=== PATIENT | female | born 1965 | race Caucasian/White ===

== ENCOUNTER 2022-02-21 09:46 | Inpatient (IN) | payer MEDICAID, OTHER ==
[2022-02-21] MEDS ORDERED: KETOROLAC 15 MG/ML 1 ML VIAL IVP STA (11:11)
[2022-02-21] MEDS ORDERED: ONDANSETRON 4 MG/2 ML VIAL IVP STA (11:24)
[2022-02-21] MEDS ORDERED: PANTOPRAZOLE 40 MG/10 ML VIAL IVP STA (11:24)
[2022-02-21] MEDS ORDERED: MORPHINE SULFATE 2 MG/ML SYRINGE IVP STA (11:24)
--- NOTE | 2022-02-21 11:30 | ED ---
Abdominal Pain HPI - General Chief Complaint: Abdominal Pain Stated Complaint: abd pain Time Seen by Provider: 02/21/22 11:05 Source: patient, RN notes reviewed Mode of arrival: ambulatory Limitations: no limitations - History of Present Illness Initial Comments: This is a 56-year-old female who presents to the emergency department for abdominal pain. States that she has a long-standing history of diverticulitis that has never been addressed. States that for approximately 5 days, she has had abdominal pain, with constipation occurring beforehand. She has since had episodes of diarrhea, which she is trying to treat with Imodium. The pain has since continued with no relief. Reports associated bloating and nausea. She did vomit a few days ago, but has since not had any episodes of vomiting. States that the abdominal pain is in her lower abdomen with radiation into the back and seems to be getting worse. Denies any fevers, chills, sore throat, cough, dyspnea, chest pain, palpitations, or headaches. MD Complaint: abdominal pain Onset/Timin -: days(s) Location: LLQ, RLQ, suprapubic Radiation: back Associated Symptoms: nausea, vomiting, diarrhea, constipation - Related Data Patient : No Home Medications Medication Instructions Recorded Confirmed No Known Home Medications 02/21/22 02/21/22 Allergies Allergy/AdvReac Type Severity Reaction Status Date / Time No Known Allergies Allergy Verified 02/21/22 13:14 Review of Systems ROS Statement: Those systems with pertinent positive or pertinent negative responses have been documented in the HPI. ROS Other: All systems not noted in ROS Statement are negative. Past Medical History Past Medical History: No Reported History Additional Past Medical History / Comment(s): hx diverticulitis, colonoscopy History of Any Multi-Drug Resistant Organisms: None Reported Past Surgical History: No Surgical Hx Reported Additional Past Surgical History / Comment(s): oral surgery, lt breast biopsy - Neg for CA Past Anesthesia/Blood Transfusion Reactions: No Reported Reaction Past Psychological History: No Psychological Hx Reported Smoking Status: Former smoker Past Alcohol Use History: Occasional Past Drug Use History: None Reported - Past Family History Father Family Medical History: Cancer Son(s) Family Medical History: Cancer Additional Family Medical History / Comment(s): Leukemia General Exam Limitations: no limitations General appearance: alert, in no apparent distress Head exam: Present: atraumatic, normocephalic, normal inspection Respiratory exam: Present: normal lung sounds bilaterally. Absent: respiratory distress, wheezes, rales, rhonchi, stridor Cardiovascular Exam: Present: regular rate, normal rhythm, normal heart sounds. Absent: systolic murmur, diastolic murmur, rubs, gallop, clicks GI/Abdominal exam: Present: soft, tenderness (Lower abdomen), normal bowel sounds. Absent: distended, guarding, rebound, rigid Neurological exam: Present: alert, oriented X3, CN II-XII intact Psychiatric exam: Present: normal affect, normal mood Skin exam: Present: warm, dry, intact, normal color. Absent: rash Course Vital Signs 02/21/22 09:49 Temperature 97.9 F Pulse Rate 87 Respiratory 20 Rate Blood Pressure 124/82 O2 Sat by Pulse 99 Oximetry Medical Decision Making - Medical Decision Making This is a 56-year-old female who presents to the emergency department for abdominal pain, nausea, and vomiting. Lab work was nonactionable. She was given Toradol, Zofran, Protonix, and morphine, which she states improved her symptoms. Urinalysis consistent with contamination more so than infection. She did test positive for COVID-19. Computed tomography scan of the abdomen and pelvis obtained, revealing acute sigmoid diverticulitis with abscess formation. Patient started on IV fluids and Zosyn. She'll be admitted to medicine with surgical consult. She will also be kept NPO in the event any intervention is warranted. This case was discussed in detail with the attending ED physician. Presentation, findings, and treatment plan discussed in detail as well. - Lab Data Result diagrams: 02/21/22 11:41 02/21/22 11:41 Lab Results 02/21/22 02/21/22 02/21/22 Range/Units 11:41 11:41 11:41 WBC 10.2 (3.8-10.6) k/uL RBC 3.75 L (3.80-5.40) m/uL Hgb 12.4 (11.4-16.0) gm/dL Hct 36.9 (34.0-46.0) % MCV 98.3 (80.0-100.0) fL MCH 33.2 (25.0-35.0) pg MCHC 33.7 (31.0-37.0) g/dL RDW 12.3 (11.5-15.5) % Plt Count 634 H (150-450) k/uL MPV 7.2 Neutrophils % 79 % Lymphocytes % 14 % Monocytes % 4 % Eosinophils % 1 % Basophils % 0 % Neutrophils # 8.1 H (1.3-7.7) k/uL Lymphocytes # 1.4 (1.0-4.8) k/uL Monocytes # 0.5 (0-1.0) k/uL Eosinophils # 0.1 (0-0.7) k/uL Basophils # 0.0 (0-0.2) k/uL Sodium 134 L (137-145) mmol/L Potassium 3.8 (3.5-5.1) mmol/L Chloride 95 L (98-107) mmol/L Carbon Dioxide 28 (22-30) mmol/L Anion Gap 11 mmol/L BUN 9 (7-17) mg/dL Creatinine 0.36 L (0.52-1.04) mg/dL Est GFR (CKD-EPI)AfAm >90 (>60 ml/min/1.73 sqM) Est GFR (CKD-EPI)NonAf >90 (>60 ml/min/1.73 sqM) Glucose 107 H (74-99) mg/dL Calcium 8.8 (8.4-10.2) mg/dL Total Bilirubin 0.5 (0.2-1.3) mg/dL AST 22 (14-36) U/L ALT 16 (4-34) U/L Alkaline Phosphatase 157 H (38-126) U/L Troponin I (0.000-0.034) ng/mL Total Protein 7.0 (6.3-8.2) g/dL Albumin 3.8 (3.5-5.0) g/dL Amylase 35 (30-110) U/L Lipase 30 (23-300) U/L Urine Color Dark Yellow Urine Appearance Cloudy H (Clear) Urine pH 5.5 (5.0-8.0) Ur Specific [place] 1.026 (1.001-1.035) Urine Protein 1+ H (Negative) Urine Glucose (UA) Negative (Negative) Urine Ketones Negative (Negative) Urine Blood Negative (Negative) Urine Nitrite Negative (Negative) Urine Bilirubin 1+ H (Negative) Urine Urobilinogen 2.0 (<2.0) mg/dL Ur Leukocyte Esterase Moderate H (Negative) Urine RBC 3 (0-5) /hpf Urine WBC 5 (0-5) /hpf Ur Squamous Epith Cells 14 H (0-4) /hpf Urine Mucus Many H (None) /hpf Coronavirus (PCR) (Not Detectd) 02/21/22 02/21/22 Range/Units 11:41 11:41 WBC (3.8-10.6) k/uL RBC (3.80-5.40) m/uL Hgb (11.4-16.0) gm/dL Hct (34.0-46.0) % MCV (80.0-100.0) fL MCH (25.0-35.0) pg MCHC (31.0-37.0) g/dL RDW (11.5-15.5) % Plt Count (150-450) k/uL MPV Neutrophils % % Lymphocytes % % Monocytes % % Eosinophils % % Basophils % % Neutrophils # (1.3-7.7) k/uL Lymphocytes # (1.0-4.8) k/uL Monocytes # (0-1.0) k/uL Eosinophils # (0-0.7) k/uL Basophils # (0-0.2) k/uL Sodium (137-145) mmol/L Potassium (3.5-5.1) mmol/L Chloride (98-107) mmol/L Carbon Dioxide (22-30) mmol/L Anion Gap mmol/L BUN (7-17) mg/dL Creatinine (0.52-1.04) mg/dL Est GFR (CKD-EPI)AfAm (>60 ml/min/1.73 sqM) Est GFR (CKD-EPI)NonAf (>60 ml/min/1.73 sqM) Glucose (74-99) mg/dL Calcium (8.4-10.2) mg/dL Total Bilirubin (0.2-1.3) mg/dL AST (14-36) U/L ALT (4-34) U/L Alkaline Phosphatase (38-126) U/L Troponin I <0.012 (0.000-0.034) ng/mL Total Protein (6.3-8.2) g/dL Albumin (3.5-5.0) g/dL Amylase (30-110) U/L Lipase (23-300) U/L Urine Color Urine Appearance (Clear) Urine pH (5.0-8.0) Ur Specific [place] (1.001-1.035) Urine Protein (Negative) Urine Glucose (UA) (Negative) Urine Ketones (Negative) Urine Blood (Negative) Urine Nitrite (Negative) Urine Bilirubin (Negative) Urine Urobilinogen (<2.0) mg/dL Ur Leukocyte Esterase (Negative) Urine RBC (0-5) /hpf Urine WBC (0-5) /hpf Ur Squamous Epith Cells (0-4) /hpf Urine Mucus (None) /hpf Coronavirus (PCR) Detected A (Not Detectd) - Radiology Data Radiology results: report reviewed, image reviewed Disposition Clinical Impression: Diverticulitis of intestine with abscess Disposition: [facility] Referrals: None,Stated [Primary Care Provider] - 1-2 days
[2022-02-21 12:31] LABS: Basophils % (A) 0 %; Eosinophils # (A) 0.1 k/uL (0-0.7); Eosinophils % (A) 1 %; HCT 36.9 % (34.0-46.0); HGB 12.4 gm/dL (11.4-16.0); Lymphocytes # (A) 1.4 k/uL (1.0-4.8); Lymphocytes % (A) 14 %; MCH 33.2 pg (25.0-35.0); MCHC 33.7 g/dL (31.0-37.0); MCV 98.3 fL (80.0-100.0); Mean Platelet Volume 7.2; Monocytes # (A) 0.5 k/uL (0-1.0); Monocytes % (A) 4 %; Neutrophils # (A) 8.1 k/uL (1.3-7.7); Neutrophils % (A) 79 %; Platelet Count 634 k/uL (150-450); RBC 3.75 m/uL (3.80-5.40); RDW 12.3 % (11.5-15.5); WBC 10.2 k/uL (3.8-10.6)
[2022-02-21 12:47] LABS: ALT 16 U/L (4-34); AST 22 U/L (14-36); African American GFR (CKD) >90 (>60 ml/min/1.73 sqM); Albumin 3.8 g/dL (3.5-5.0); Alkaline Phosphatase 157 U/L (38-126); Amylase 35 U/L (30-110); Anion Gap 11 mmol/L; Blood Urea Nitrogen 9 mg/dL (7-17); Calcium 8.8 mg/dL (8.4-10.2); Carbon Dioxide 28 mmol/L (22-30); Chloride 95 mmol/L (98-107); Glucose 107 mg/dL (74-99); Lipase 30 U/L (23-300); Non-African American GFR(CKD) >90 (>60 ml/min/1.73 sqM); Potassium 3.8 mmol/L (3.5-5.1); Sodium 134 mmol/L (137-145); Total Bilirubin 0.5 mg/dL (0.2-1.3)
[2022-02-21 12:48] LABS: Appearance,Urine Cloudy (Clear); Bilirubin,Urine 1+ (Negative); Blood,Urine Negative (Negative); Color,Urine Dark Yellow; Glucose,Urine (UA) Negative (Negative); Ketones,Urine Negative (Negative); Leukocyte Esterase,Urine Moderate (Negative); Mucus,Urine Many /hpf; Nitrite,Urine Negative (Negative); PH, Urine 5.5 (5.0-8.0); Protein,Urine 1+ (Negative); RBC,Urine 3 /hpf (0-5); Specific Gravity,Urine 1.026 (1.001-1.035); Squamous Epithelial Cell,Urine 14 /hpf (0-4); WBC,Urine 5 /hpf (0-5)
--- NOTE | 2022-02-21 13:47 | CT ---
EXAMINATION TYPE: CT abdomen pelvis w con DATE OF EXAM: 02/21/2022 COMPARISON: 03/23/15 HISTORY: Abdominal pain CT DLP: 514.6 mGycm CONTRAST: CT scan of the abdomen and pelvis is performed without Oral Contrast and with IV Contrast, patient in jected with 100 mL of Isovue 300. FINDINGS: LUNG BASES-: No visible nodule. No infiltrate. LIVER/GB: No calcified gallstones. No space occupying hepatic lesion. Biliary tree is of normal ca liber. PANCREAS: No inflammation. No distinct mass. SPLEEN: No splenic enlargement. No lesion seen. ADRENALS: No nodule. No thickening. KIDNEYS/BLADDER: No hydronephrosis. No nephrolithiasis. No distinct renal mass. Urinary bladder g rossly unremarkable. BOWEL: There are a few tiny foci of free air seen within the upper abdomen. There is evidence of sigm oid diverticulitis with abscess noted as seen best on axial image 61 and coronal image 68 measuring 3 .3 x 2.7 cm. The abscess resides adjacent to the right portion of the uterus. Sigmoid wall thickening with numerous diverticula seen. Inflammatory change extends into the right adnexa. Small bowel is of normal caliber. Nonvisualization of the appendix. GENITAL ORGANS: No left adnexal mass. Inflammatory change extends into the right adnexal region. LYMPH NODES: No greater than 1cm abdominal or pelvic lymph nodes are appreciated. AORTA: No significant abnormality. OSSEOUS STRUCTURES: No significant abnormality is seen. OTHER: No significant additional abnormality is seen. IMPRESSION: 1. Findings compatible with the acute sigmoid diverticulitis with abscess formation. Abscess is diffi cult to drain given size and location. As noted above there are a few tiny foci of free air within th e upper abdomen. Inflammatory change extends into the right adnexa.
[2022-02-21] MEDS ORDERED: SODIUM CHLORIDE 0.9% 1,000 ML IV STA (13:51)
[2022-02-21] MEDS ORDERED: KETOROLAC 15 MG/ML 1 ML VIAL IVP PRN (15:00)
[2022-02-21] MEDS ORDERED: ONDANSETRON 4 MG/2 ML VIAL IVP PRN (15:00)
[2022-02-21] MEDS ORDERED: HYDROmorphone 1 MG/ML 1 ML SYRINGE IVP PRN (15:00)
[2022-02-21] MEDS ORDERED: NALOXONE 0.4 MG/ML 1 ML VIAL IV PRN (15:00)
[2022-02-21] MEDS ORDERED: ACETAMINOPHEN TAB 325 MG TAB PO PRN (15:00)
--- NOTE | 2022-02-21 15:27 | P.HPIM ---
History of Present Illness H&P Date: 02/21/22 History of Presenting Illness: Patient is a very pleasant 56-year-old female with a past medical history of diverticulosis and nicotine dependence. Patient presented to the emergency department with a chief complaint of abdominal pain. Patient reports that she has chronic diarrhea which slightly worse in 2 weeks ago when she was diagnosed with Covid. Patient states that she was treating this with Imodium which resulted in constipation, abdominal pain, and bloating. Patient reports she then took a "Brown Bomber" consisting of miralax and prune juice and resumed her baseline diarrhea but states that she continues to have abdominal pain, nausea, and bloating. Patient reports severe pain left lower quadrant radiating into her back, states pain is worse in any previous pain she has had with diverticulitis. She denies having fever, chills, diaphoresis, chest pain, palpitations, cough, congestion, shortness of breath, exertional dyspnea, vomiti ng, hematemesis, melena, hematochezia, or experiencing any difficulties in or changes in her urinary function. Reports that her 11-year-old granddaughter was recently diagnosed with a parasitic infection. Patient underwent full evaluation in the emergency department. CBC unremarkable with the exception of thrombocytosis with platelet count of 634. BMP revealing mild hyponatremia with sodium of 134, hypochloremia with chloride of 95, and elevated alkaline phosphatase of 157. Troponin negative at less than 0.012. Urinalysis contaminated specimen, but showing no signs of infection. Covid PCR incidentally positive, however patient reports that she works at [employer] and was diagnosed with Covid infection [address] abdomen and pelvis with contrast revealing acute sigmoid diverticulitis with abscess formation. Patient started on IV antibiotics with Zosyn and admitted under our services with consultation to general surgery. Review of systems: Pertinent positives and negatives as discussed in HPI, a complete review of syst ems was performed and all other systems are negative. Physical exam: Vital signs reviewed and stable. General: Nontoxic, no distress and appears stated age. Derm: Skin warm and dry, normal coloration for ethnicity. Head: Atraumatic, normocephalic and symmetric. Eyes: EOMs intact, no lid lag, and anicteric sclera Mouth: no lip lesions, mucus membranes moist Cardiovascular: regular rate and rhythm with normal S1S2, no murmur, positive posterior tibial pulses bilaterally, and cap refill < 2 seconds. Lungs: Respirations even, regular, and unlabored on room air. Lungs diminished bilaterally, no rhonchi, no rales, no wheezing, and no accessory muscle usage. Abdominal: soft, left lower quadrant tenderness upon palpation, no guarding, no appreciable organomegaly Ext: ROM intact. No gross muscle atrophy, no edema, no contractures Neuro: Speech clear, face symmetrical and CN II-XII grossly intact with no noted focal neuro deficits Psych: Alert and oriented to person, place, time, and situation. Appropriate and pleasant affect. Assessment and Plan of Care: Acute sigmoid diverticulitis with abscess formation Covid 19 positive test, reports postive test 2 weeks ago. Thrombocytosis, likely reactive secondary to above -CT abdomen and pelvis with contrast revealing acute sigmoid diverticulitis with abscess formation -NPO -Gen. surgery consulted -Symptomatic care and pain management -IV fluid hydration -IV antibiotics with Zosyn -DVT prophylaxis with Lovenox. -Strict Droplet plus Contact precautions Nicotine dependence -Recommend smoking cessation. -Nicotine patch The patient is admitted with an anticipated greater than 2 midnight stay for evaluation of acute sigmoid diverticulitis with abscess formation CODE STATUS: Full code DVT prophylaxis: Lovenox Discussed with: Patient, patient's family members at bedside, and RN Anticipated discharge date: Clinical course to determine Anticipated discharge place: Home A total of 45 minutes was spent on the care of this complex patient more than 50% of the time was spent in counseling and care coordination. I reviewed the documentation as provided by the KATIE above, who is the original author of this note. I agree with the documented assessment and plan, with the following changes: none Past Medical History Past Medical History: No Reported History Additional Past Medical History / Comment(s): hx diverticulitis, colonoscopy History of Any Multi-Drug Resistant Organisms: None Reported Past Surgical History: No Surgical Hx Reported Additional Past Surgical History / Comment(s): oral surgery, lt breast biopsy - Neg for CA Past Anesthesia/Blood Transfusion Reactions: No Reported Reaction Past Psychological History: No Psychological Hx Reported Smoking Status: Former smoker Past Alcohol Use History: Occasional Past Drug Use History: None Reported - Past Family History Father Family Medical History: Cancer Son(s) Family Medical History: Cancer Additional Family Medical History / Comment(s): Leukemia Medications and Allergies Home Medications Medication Instructions Recorded Confirmed Type No Known Home Medications 02/21/22 02/21/22 History Allergies Allergy/AdvReac Type Severity Reaction Status Date / Time No Known Allergies Allergy Verified 02/21/22 13:14 Physical Exam Osteopathic Statement: *. No significant issues noted on an osteopathic structural exam other than those noted in the History and Physical/Consult. Vitals: Vital Signs Temp Pulse Resp BP Pulse Ox 02/21/22 09:49 97.9 F 87 20 124/82 99 Intake and Output 02/21/22 02/21/22 02/21/22 06:59 14:59 22:59 Other: Weight 50.802 kg Results CBC & Chem 7: 02/21/22 11:41 02/21/22 11:41 Labs: Abnormal Lab Results - Last 24 Hours (Table) 02/21/22 02/21/22 02/21/22 Range/Units 11:41 11:41 11:41 RBC 3.75 L (3.80-5.40) m/uL Plt Count 634 H (150-450) k/uL Neutrophils # 8.1 H (1.3-7.7) k/uL Sodium 134 L (137-145) mmol/L Chloride 95 L (98-107) mmol/L Creatinine 0.36 L (0.52-1.04) mg/dL Glucose 107 H (74-99) mg/dL Alkaline Phosphatase 157 H (38-126) U/L Urine Appearance Cloudy H (Clear) Urine Protein 1+ H (Negative) Urine Bilirubin 1+ H (Negative) Ur Leukocyte Esterase Moderate H (Negative) Ur Squamous Epith Cells 14 H (0-4) /hpf Urine Mucus Many H (None) /hpf Coronavirus (PCR) (Not Detectd) 02/21/22 Range/Units 11:41 RBC (3.80-5.40) m/uL Plt Count (150-450) k/uL Neutrophils # (1.3-7.7) k/uL Sodium (137-145) mmol/L Chloride (98-107) mmol/L Creatinine (0.52-1.04) mg/dL Glucose (74-99) mg/dL Alkaline Phosphatase (38-126) U/L Urine Appearance (Clear) Urine Protein (Negative) Urine Bilirubin (Negative) Ur Leukocyte Esterase (Negative) Ur Squamous Epith Cells (0-4) /hpf Urine Mucus (None) /hpf Coronavirus (PCR) Detected A (Not Detectd)
[2022-02-21] MEDS: HYDROmorphone 0.5 MG/0.5 ML SYRINGE IVP PRN (15:37)
[2022-02-21] MEDS: PIPERACILLIN-TAZOBACTAM 3.375 GM in SODIUM CHLORIDE 0.9% 100 ML IVPB SCH (15:38)
[2022-02-21] MEDS: ENOXAPARIN 40 MG/0.4 ML SYRINGE SQ SCH (15:49)
[2022-02-21] MEDS: SODIUM CHLORIDE 0.9% 1,000 ML IV SCH (15:49)
[2022-02-21] MEDS: NICOTINE 14MG/24HR PATCH TRANSDERM SCH (17:30)
[2022-02-22] MEDS: HYDROmorphone 0.5 MG/0.5 ML SYRINGE IVP PRN ×2 (02:31→20:12)
[2022-02-22] MEDS: SODIUM CHLORIDE 0.9% 1,000 ML IV SCH ×4 (02:38→23:47)
[2022-02-22] MEDS: PIPERACILLIN-TAZOBACTAM 3.375 GM in SODIUM CHLORIDE 0.9% 100 ML IVPB SCH ×4 (02:38→23:43)
[2022-02-22] MEDS: PANTOPRAZOLE 40 MG/10 ML VIAL IV SCH (08:41)
[2022-02-22] MEDS: ENOXAPARIN 40 MG/0.4 ML SYRINGE SQ SCH (08:41)
[2022-02-22] MEDS: NICOTINE 14MG/24HR PATCH TRANSDERM SCH ×2 (08:41→09:00)
[2022-02-22 11:16] LABS: HCT 29.6 % (37.2-46.3); HGB 9.3 g/dL (12.0-15.0); MCH 32.4 pg (27.0-32.0); MCHC 31.4 g/dL (32.0-37.0); MCV 103.1 fL (80.0-97.0); Mean Platelet Volume 9.1 fL (9.5-12.2); NRBC Per 100 WBC 0 /100 WBCS (0.0-0.0); Platelet Count 499 X 10*3/uL (140-440); RBC 2.87 X 10*6/uL (4.10-5.20); RDW 12.2 % (11.5-14.5); WBC 6.63 X 10*3/uL (4.50-10.00)
[2022-02-22 11:30] LABS: ALT 9 U/L (8-44); AST 14 U/L (13-35); African American GFR (CKD) 147.3 (60.0-200.0); Albumin/Globulin Ratio 1.11 (1.60-3.17); Alkaline Phosphatase 106 U/L (41-126); BUN/Creat Ratio 28.33 Ratio (12.00-20.00); Blood Urea Nitrogen 8.5 mg/dL (9.0-27.0); Calcium 8.3 mg/dL (8.7-10.3); Carbon Dioxide 23.6 mmol/L (20.0-27.5); Chloride 105 mmol/L (96-109); Globulin 2.7 g/dL (1.6-3.3); Glucose 76 mg/dL (70-110); Magnesium 2.1 mg/dL (1.5-2.4); Non-African American GFR(CKD) 127.1 (60.0-200.0); Potassium 3.6 mmol/L (3.5-5.5); Sodium 139 mmol/L (135-145); Total Bilirubin <0.15 mg/dL (0.30-1.20); Total Protein 5.7 g/dL (6.2-8.2)
--- NOTE | 2022-02-22 14:43 | P.GSCN ---
History of Present Illness Consult date: 02/22/22 History of present illness: CHIEF COMPLAINT: Abdominal pain HISTORY OF PRESENT ILLNESS: This is a 56-year-old female presented to the hospital with complaints of abdominal pain mostly on the left lower abdomen and lower mid abdomen. She reports that symptoms happened over the last 3 days. Pain was sharp and stabbing. She reports the pain was of 15 out of 10. She did have episode of vomiting. She reports that the pain was worse after eating. Patient does have a history of diverticulosis. Her last colonoscopy was about 3 years ago. She reports that she had one official antibiotic treatment of diverticulitis. But she feels that she has consistent flareups likely of diverticulitis that have undergone untreated for years. All she denies any blood in her stools. She has been doing with diarrhea in which she takes Imodium and then has constipation. Computed tomography scan of abdomen and pelvis had shown sigmoid diverticulitis with abscess and tiny microperforation. Surgical service has been consulted in regards to diverticulitis abscess. Patient is on antibiotics. She denies any fever chills or sweats. Patient does report improvement of her pain today. Patient seen and examined with Dr. castillo PAST MEDICAL HISTORY: See list. PAST SURGICAL HISTORY: See list. MEDICATIONS: See list. ALLERGIES: See list. SOCIAL HISTORY: No illicit drug use. REVIEW OF SYSTEMS: CONSTITUTIONAL: Denies fever or chills. HEENT: Denies blurred vision, vision changes, or eye pain. Denies hemoptysis CARDIOVASCULAR: Denies chest pain or pressure. RESPIRATORY: No shortness of breath. GASTROINTESTINAL: See HPI for pertinent findings HEMATOLOGIC: Denies bleeding disorders. GENITOURINARY: Denies any blood in urine or increased urinary frequency. SKIN: Denies pruitis. Denies rash. PHYSICAL EXAM: VITAL SIGNS: Reviewed GENERAL: Well-developed in no acute distress. HEENT: No sclera icterus. Extraocular movements grossly intact. Moist buccal mucosa. Head is atraumatic, normocephalic. No nasal drainage. ABDOMEN: Soft. Nondistended. Minimal discomfort with palpation in the lower abdomen along the left lower quadrant and pelvic area. NEUROLOGIC: Alert and oriented. Cranial nerves II through XII grossly intact. LABORATORY DATA: WBC is 6.63 hemoglobin 9.3 platelets 499 Sodium is 139 potassium 3.6 creatinine 0.3 COVID-19 detected. Patient reports she was tested positive for cold and 2 weeks ago IMAGING: Computed tomography scan abdomen and pelvis acute sigmoid diverticulitis with abscess formation. Abscess is difficult to drain given size and location. A few tiny foci of free air within the upper abdomen. Inflammatory change extends into the right adnexa. Abscess measuring 3.3 x 2.7 cm. ASSESSMENT: 1. Acute sigmoid diverticulitis with abscess and microperforation PLAN: -Advance diet to full liquids -Continue to monitor -Continue antibiotics -Continue IV fluids -Encourage patient to ambulate -No surgical intervention planned at this time -Recommend colonoscopy outpatient in 6-8 weeks Physician Electric Motor [employer] note has been reviewed by physician. Signing provider agrees with the documented findings, assessment, and plan of care. Past Medical History Past Medical History: No Reported History Additional Past Medical History / Comment(s): hx diverticulitis, colonoscopy History of Any Multi-Drug Resistant Organisms: None Reported Past Surgical History: No Surgical Hx Reported Additional Past Surgical History / Comment(s): oral surgery, lt breast biopsy - Neg for CA Past Anesthesia/Blood Transfusion Reactions: No Reported Reaction Past Psychological History: No Psychological Hx Reported Smoking Status: Former smoker Past Alcohol Use History: Occasional Additional Past Alcohol Use History / Comment(s): smokes 1 PPD for past 20 yrs Past Drug Use History: None Reported - Past Family History Father Family Medical History: Cancer Son(s) Family Medical History: Cancer Additional Family Medical History / Comment(s): Leukemia Medications and Allergies Home Medications Medication Instructions Recorded Confirmed Type No Known Home Medications 02/21/22 02/21/22 History Allergies Allergy/AdvReac Type Severity Reaction Status Date / Time No Known Allergies Allergy Verified 02/21/22 13:14 Surgical - Exam Vital Signs Temp Pulse Resp BP Pulse Ox 97.9 F 87 20 124/82 99 02/21/22 09:49 02/21/22 09:49 02/21/22 09:49 02/21/22 09:49 02/21/22 09:49 Results - Labs 02/22/22 07:33 02/22/22 07:33 Abnormal Lab Results - Last 24 Hours (Table) 02/21/22 02/21/22 02/21/22 Range/Units 11:41 11:41 11:41 RBC 3.75 L (3.80-5.40) m/uL Plt Count 634 H (150-450) k/uL Neutrophils # 8.1 H (1.3-7.7) k/uL Sodium 134 L (137-145) mmol/L Chloride 95 L (98-107) mmol/L Creatinine 0.36 L (0.52-1.04) mg/dL Glucose 107 H (74-99) mg/dL Alkaline Phosphatase 157 H (38-126) U/L Urine Appearance Cloudy H (Clear) Urine Protein 1+ H (Negative) Urine Bilirubin 1+ H (Negative) Ur Leukocyte Esterase Moderate H (Negative) Ur Squamous Epith Cells 14 H (0-4) /hpf Urine Mucus Many H (None) /hpf Coronavirus (PCR) (Not Detectd) 02/21/22 Range/Units 11:41 RBC (3.80-5.40) m/uL Plt Count (150-450) k/uL Neutrophils # (1.3-7.7) k/uL Sodium (137-145) mmol/L Chloride (98-107) mmol/L Creatinine (0.52-1.04) mg/dL Glucose (74-99) mg/dL Alkaline Phosphatase (38-126) U/L Urine Appearance (Clear) Urine Protein (Negative) Urine Bilirubin (Negative) Ur Leukocyte Esterase (Negative) Ur Squamous Epith Cells (0-4) /hpf Urine Mucus (None) /hpf Coronavirus (PCR) Detected A (Not Detectd) Diabetes panel 02/21/22 Range/Units 11:41 Sodium 134 L (137-145) mmol/L Potassium 3.8 (3.5-5.1) mmol/L Chloride 95 L (98-107) mmol/L Carbon Dioxide 28 (22-30) mmol/L BUN 9 (7-17) mg/dL Creatinine 0.36 L (0.52-1.04) mg/dL Glucose 107 H (74-99) mg/dL Calcium 8.8 (8.4-10.2) mg/dL AST 22 (14-36) U/L ALT 16 (4-34) U/L Alkaline Phosphatase 157 H (38-126) U/L Total Protein 7.0 (6.3-8.2) g/dL Albumin 3.8 (3.5-5.0) g/dL Calcium panel 02/21/22 Range/Units 11:41 Calcium 8.8 (8.4-10.2) mg/dL Albumin 3.8 (3.5-5.0) g/dL Pituitary panel 02/21/22 Range/Units 11:41 Sodium 134 L (137-145) mmol/L Potassium 3.8 (3.5-5.1) mmol/L Chloride 95 L (98-107) mmol/L Carbon Dioxide 28 (22-30) mmol/L BUN 9 (7-17) mg/dL Creatinine 0.36 L (0.52-1.04) mg/dL Glucose 107 H (74-99) mg/dL Calcium 8.8 (8.4-10.2) mg/dL Adrenal panel 02/21/22 Range/Units 11:41 Sodium 134 L (137-145) mmol/L Potassium 3.8 (3.5-5.1) mmol/L Chloride 95 L (98-107) mmol/L Carbon Dioxide 28 (22-30) mmol/L BUN 9 (7-17) mg/dL Creatinine 0.36 L (0.52-1.04) mg/dL Glucose 107 H (74-99) mg/dL Calcium 8.8 (8.4-10.2) mg/dL Total Bilirubin 0.5 (0.2-1.3) mg/dL AST 22 (14-36) U/L ALT 16 (4-34) U/L Alkaline Phosphatase 157 H (38-126) U/L Total Protein 7.0 (6.3-8.2) g/dL Albumin 3.8 (3.5-5.0) g/dL
--- NOTE | 2022-02-22 16:48 | P.PN ---
Subjective Progress Note Date: 02/22/22 Hospital course: Patient is a very pleasant 56-year-old female with a past medical history of diverticulosis and nicotine dependence. Patient presented to the emergency department with a chief complaint of abdominal pain. Patient reports that she has chronic diarrhea which slightly worse in 2 weeks ago when she was diagnosed with Covid. Patient states that she was treating this with Imodium which resulted in constipation, abdominal pain, and bloating. Patient reports she then took a "Brown Bomber" consisting of miralax and prune juice and resumed her baseline diarrhea but states that she continues to have abdominal pain, nausea, and bloating. Patient reports severe pain left lower quadrant radiating into her back, states pain is worse in any previous pain she has had with diverticulitis. She denies having fever, chills, diaphoresis, chest pain, palpitations, cough, congestion, shortness of breath, exertional dyspnea, vomiting, hematemesis, melena, hematochezia, or experiencing any difficulties in or changes in her urinary function. Reports that her 11-year-old granddaughter was recently diagnosed with a parasitic infection. Patient underwent full evaluation in the emergency department. CBC unremarkable with the exception of thrombocytosis with platelet count of 634. BMP revealing mild hyponatremia with sodium of 134, hypochloremia with chloride of 95, and elevated alkaline phosphatase of 157. Troponin negative at less than 0.012. Urinalysis contamin ated specimen, but showing no signs of infection. Covid PCR incidentally positive, however patient reports that she works at [employer] and was diagnosed with Covid infection [address] abdomen and pelvis with contrast revealing acute sigmoid diverticulitis with abscess formation. Patient started on IV antibiotics with Zosyn and admitted under our services with consultation to general surgery. Physical exam: Patient seen and fully evaluated at bedside. She reports improvement in previously reported pain but continues to have mild pain to bilateral lower quadrants this morning improved after administration of IV pain medication. Patient denies any episodes of nausea or vomiting. Patient denies any episodes of bleeding or dark colored stools. Hemoglobin dropped from 12.4 down to 9.3, possibly secondary to dilution as patient received moderate amount of IV fluid hydration. Secondary to denying any noted bleeding, we will continue to monitor closely with repeat a.m. labs. Vital signs reviewed and stable. General: Nontoxic, no distress and appears stated age. Derm: Skin warm and dry, normal coloration for ethnicity. Head: Atraumatic, normocephalic and symmetric. Eyes: EOMs intact, no lid lag, and anicteric sclera Mouth: no lip lesions, mucus membranes moist Cardiovascular: regular rate and rhythm with normal S1S2, no murmur, positive posterior tibial pulses bilaterally, and cap refill < 2 seconds. Lungs: Respirations even, regular, and unlabored on room air. Lungs diminished bilaterally, no rhonchi, no rales, no wheezing, and no accessory muscle usage. Abdominal: soft, left lower quadrant tenderness upon palpation, no guarding, no appreciable organomegaly Ext: ROM intact. No gross muscle atrophy, no edema, no contractures Neuro: Speech clear, face symmetrical and CN II-XII grossly intact with no noted focal neuro deficits Psych: Alert and oriented to person, place, time, and situation. Appropriate and pleasant affect. Assessment and Plan of Care: Acute sigmoid diverticulitis with abscess formation and microperforation Covid 19 positive test, reports postive test 2 weeks ago. -CT abdomen and pelvis with contrast revealing acute sigmoid diverticulitis with abscess formation -NPO, pending further recommendations from general surgery -Gen. surgery consulted -Symptomatic care and pain management -IV fluid hydration -IV antibiotics with Zosyn -DVT prophylaxis with Lovenox. Acute anemia Thrombocytosis -Patient denies any episodes of bleeding. -We will continue to monitor closely with repeat a.m. labs. Nicotine dependence -Recommend smoking cessation. -Nicotine patch CODE STATUS: Full code DVT prophylaxis: Lovenox Discussed with: Patient, patient's daughter, and RN Anticipated discharge date: Clinical course to determine Anticipated discharge place: Home A total of 35 minutes was spent on the care of this complex patient more than 50% of the time was spent in counseling and care coordination. I reviewed the documentation as provided by the KATIE above, who is the original author of this note. I agree with the documented assessment and plan, with the following changes: none Objective - Vital Signs Vital signs: Vital Signs Temp 98 F 02/22/22 01:49 Pulse 82 02/22/22 01:49 Resp 17 02/22/22 01:49 BP 102/65 02/22/22 01:49 Pulse Ox 95 02/22/22 01:49 FiO2 Intake & Output 1002/22/22 02/22/22 18:59 06:59 18:59 Weight 50.802 kg 50.802 kg Other: Voiding Method Toilet # Voids 2 - Labs CBC & Chem 7: 02/22/22 07:33 02/22/22 07:33 Labs: Abnormal Lab Results - Last 24 Hours (Table) 02/21/22 02/21/22 02/21/22 Range/Units 11:41 11:41 11:41 RBC 3.75 L (3.80-5.40) m/uL Hgb (12.0-15.0) g/dL Hct (37.2-46.3) % MCV (80.0-97.0) fL MCH (27.0-32.0) pg MCHC (32.0-37.0) g/dL Plt Count 634 H (150-450) k/uL MPV (9.5-12.2) fL Neutrophils # 8.1 H (1.3-7.7) k/uL Sodium 134 L (137-145) mmol/L Chloride 95 L (98-107) mmol/L Creatinine 0.36 L (0.52-1.04) mg/dL Glucose 107 H (74-99) mg/dL Alkaline Phosphatase 157 H (38-126) U/L Urine Appearance Cloudy H (Clear) Urine Protein 1+ H (Negative) Urine Bilirubin 1+ H (Negative) Ur Leukocyte Esterase Moderate H (Negative) Ur Squamous Epith Cells 14 H (0-4) /hpf Urine Mucus Many H (None) /hpf Coronavirus (PCR) (Not Detectd) 02/21/22 02/22/22 Range/Units 11:41 07:33 RBC 2.87 L (3.80-5.40) m/uL Hgb 9.3 L (12.0-15.0) g/dL Hct 29.6 L (37.2-46.3) % MCV 103.1 H (80.0-97.0) fL MCH 32.4 H (27.0-32.0) pg MCHC 31.4 L (32.0-37.0) g/dL Plt Count 499 H (150-450) k/uL MPV 9.1 L (9.5-12.2) fL Neutrophils # (1.3-7.7) k/uL Sodium (137-145) mmol/L Chloride (98-107) mmol/L Creatinine (0.52-1.04) mg/dL Glucose (74-99) mg/dL Alkaline Phosphatase (38-126) U/L Urine Appearance (Clear) Urine Protein (Negative) Urine Bilirubin (Negative) Ur Leukocyte Esterase (Negative) Ur Squamous Epith Cells (0-4) /hpf Urine Mucus (None) /hpf Coronavirus (PCR) Detected A (Not Detectd)
[2022-02-23] MEDS: HYDROmorphone 0.5 MG/0.5 ML SYRINGE IVP PRN ×2 (06:06→20:17)
[2022-02-23] MEDS: SODIUM CHLORIDE 0.9% 1,000 ML IV SCH ×2 (06:08→18:29)
[2022-02-23] MEDS: ENOXAPARIN 40 MG/0.4 ML SYRINGE SQ SCH (08:10)
[2022-02-23] MEDS: PANTOPRAZOLE 40 MG/10 ML VIAL IV SCH (08:10)
[2022-02-23] MEDS: NICOTINE 14MG/24HR PATCH TRANSDERM SCH (08:10)
[2022-02-23] MEDS: PIPERACILLIN-TAZOBACTAM 3.375 GM in SODIUM CHLORIDE 0.9% 100 ML IVPB SCH ×3 (08:10→23:50)
[2022-02-23 08:58] LABS: Basophils # (A) 0.05 X 10*3/uL (0.00-0.10); Basophils % (A) 0.9 %; Eosinophils # (A) 0.06 X 10*3/uL (0.04-0.35); Eosinophils % (A) 1.1 %; HCT 27.1 % (37.2-46.3); HGB 8.8 g/dL (12.0-15.0); Immature Grans, Automated 0.4 %; Lymphocytes # (A) 1.28 X 10*3/uL (0.90-5.00); Lymphocytes % (A) 23.7 %; MCHC 32.5 g/dL (32.0-37.0); MCV 101.5 fL (80.0-97.0); Mean Platelet Volume 8.9 fL (9.5-12.2); Monocytes # (A) 0.47 X 10*3/uL (0.20-1.00); Monocytes % (A) 8.7 %; NRBC Per 100 WBC 0 /100 WBCS (0.0-0.0); Neutrophils # (A) 3.51 X 10*3/uL (1.80-7.70); Neutrophils % (A) 65.2 %; Platelet Count 513 X 10*3/uL (140-440); RBC 2.67 X 10*6/uL (4.10-5.20); RDW 12.3 % (11.5-14.5); WBC 5.39 X 10*3/uL (4.50-10.00)
[2022-02-23 09:23] LABS: ALT 8 U/L (8-44); AST 13 U/L (13-35); African American GFR (CKD) 147.3 (60.0-200.0); Albumin 2.5 g/dL (3.8-4.9); Albumin/Globulin Ratio 1.09 (1.60-3.17); Alkaline Phosphatase 84 U/L (41-126); BUN/Creat Ratio 15.33 Ratio (12.00-20.00); Blood Urea Nitrogen 4.6 mg/dL (9.0-27.0); Calcium 7.9 mg/dL (8.7-10.3); Carbon Dioxide 24.9 mmol/L (20.0-27.5); Chloride 106 mmol/L (96-109); Globulin 2.3 g/dL (1.6-3.3); Glucose 85 mg/dL (70-110); Magnesium 1.8 mg/dL (1.5-2.4); Non-African American GFR(CKD) 127.1 (60.0-200.0); Potassium 3.4 mmol/L (3.5-5.5); Sodium 140 mmol/L (135-145); Total Bilirubin <0.15 mg/dL (0.30-1.20); Total Protein 4.8 g/dL (6.2-8.2)
[2022-02-23] MEDS ORDERED: POTASSIUM CHLORIDE ER 20 MEQ TAB.ER PO STA (10:04)
--- NOTE | 2022-02-23 13:22 | P.PN ---
Subjective Progress Note Date: 02/23/22 CHIEF COMPLAINT: Diverticulitis with abscess a microperforation HISTORY OF PRESENT ILLNESS: Patient reports improvement in her abdominal pain. She had some sharp pain earlier this morning when she thought she was going to have a BM. Pain resolved with flatus. She denies any nausea or vomiting. She is tolerating full liquids. Afebrile. WBC is 5.39 hemoglobin 8.8 platelets 513 sodium is 140 potassium 3.4 creatinine 0.3 Patient seen and examined with Dr. castillo PHYSICAL EXAM: VITAL SIGNS: Reviewed. GENERAL: Well-developed in no acute distress. HEENT: No sclera icterus. Extraocular movements grossly intact. Moist buccal mucosa. Head is atraumatic, normocephalic. ABDOMEN: Soft. Nondistended. Nontender. NEUROLOGIC: Alert and oriented. Cranial nerves II through XII grossly intact. ASSESSMENT: 1. Acute sigmoid diverticulitis with abscess and microperforation 2. Hypokalemia PLAN: -Advance diet to regular -If patient continues to tolerate diet and no abdominal pain. Anticipate discharge possibly tomorrow morning -Potassium being replaced Physician Jig And Fixture Repairer note has been reviewed by physician. Signing provider agrees with the documented findings, assessment, and plan of care. Objective - Vital Signs Vital signs: Vital Signs Temp 97.9 F 02/23/22 13:12 Pulse 76 02/23/22 13:12 Resp 16 02/23/22 13:12 BP 118/73 02/23/22 13:12 Pulse Ox 98 02/23/22 13:12 FiO2 Intake & Output 02/22/22 02/23/22 02/23/22 18:59 06:59 18:59 Other: Voiding Method Toilet # Voids 3 3 3 - Labs CBC & Chem 7: 02/23/22 05:26 02/23/22 05:26 Labs: Abnormal Lab Results - Last 24 Hours (Table) 02/23/22 02/23/22 Range/Units 05:26 05:26 RBC 2.67 L (4.10-5.20) X 10*6/uL Hgb 8.8 L (12.0-15.0) g/dL Hct 27.1 L (37.2-46.3) % MCV 101.5 H (80.0-97.0) fL MCH 33.0 H (27.0-32.0) pg Plt Count 513 H (140-440) X 10*3/uL MPV 8.9 L (9.5-12.2) fL Potassium 3.4 L (3.5-5.5) mmol/L Anion Gap 9.10 L (10.00-18.00) mmol/L BUN 4.6 L (9.0-27.0) mg/dL Creatinine 0.3 L (0.6-1.5) mg/dL Calcium 7.9 L (8.7-10.3) mg/dL Total Bilirubin <0.15 L (0.30-1.20) mg/dL Total Protein 4.8 L (6.2-8.2) g/dL Albumin 2.5 L (3.8-4.9) g/dL Albumin/Globulin Ratio 1.09 L (1.60-3.17) g/dL Microbiology - Last 24 Hours (Table) 02/21/22 15:26 Blood Culture - Preliminary Blood No Growth after 24 hours 02/21/22 15:41 Blood Culture - Preliminary Blood No Growth after 24 hours
--- NOTE | 2022-02-23 15:43 | P.PN ---
Subjective Progress Note Date: 02/23/22 (delayed charting seen at 0930) Patient is a 56-year-old female with history of diverticulosis, benign breast mass, and nicotine dependence who presented to the emergency department with a chief complaint of abdominal pain. In the ER she underwent an extensive evaluation. CBC unremarkable with the exception of thrombocytosis with platelet count of 634. BMP revealing mild hyponatremia with sodium of 134, hypochloremia with chloride of 95, and elevated alkaline phosphatase of 157. Troponin negative at less than 0.012. Urinalysis contaminated specimen, but showing no signs of infection. Covid PCR incidentally positive, however patient reports that she works at [employer] and was diagnosed with Covid infection [address] abdomen and pelvis with contrast revealing acute sigmoid diverticulitis with abscess formation. Patient started on IV antibiotics with Zosyn and admitted under our services with consultation to general surgery. Patient seen and examined at bedside. She states that her abdominal pain is getting better. No nausea, no vomiting. Has not had a bowel movement since admission. General: nontoxic, no distress, appears at stated age Derm: warm, dry Head: atraumatic, normocephalic, symmetric Eyes: EOMI, no lid lag, anicteric sclera Mouth: no lip lesion, mucus membranes moist Cardiovascular: S1S2 reg, no murmur, positive posterior tibial pulse bilateral, Lungs: CTA bilateral, no rhonchi, no rales , no accessory muscle use Abdominal: soft, + tender to palpation left lower quadrant, no guarding, no appreciable organomegaly Ext: no gross muscle atrophy, no edema, no contractures Neuro: CN II-XI grossly intact, no focal neuro deficits Psych: Alert, oriented, appropriate affect Assessment/plan: Acute sigmoid diverticulitis with abscess and microperforation -General surgery recommendations -On full liquid diet -Continue with Zosyn -Pain control -Decrease IV fluids Acute anemia Thrombocytosis - Decreasing, may be related to fluid resuscitation -Check iron studies, B 12, and Folate -Follow CBC -Patient without bowel movement to suggest bleeding. Nicotine dependence - Cessation -Nicotine replacement Hypokalemia - replace and recheck DVT prophylaxis: SCDs Discussed with: Patient, nursing Anticipated discharge: in 1-[address]: home A total of 55 minutes was spent on the care of this complex patient more than 50% of the time was spent in counseling and care coordination. Objective - Vital Signs Vital signs: Vital Signs Temp 97.9 F 02/23/22 13:12 Pulse 76 02/23/22 13:12 Resp 16 02/23/22 13:12 BP 118/73 02/23/22 13:12 Pulse Ox 98 02/23/22 13:12 FiO2 Intake & Output 02/22/22 02/23/22 02/23/22 18:59 06:59 18:59 Other: Voiding Method Toilet # Voids 3 3 3 - Labs CBC & Chem 7: 02/23/22 05:26 02/23/22 05:26 Labs: Abnormal Lab Results - Last 24 Hours (Table) 02/23/22 02/23/22 Range/Units 05:26 05:26 RBC 2.67 L (4.10-5.20) X 10*6/uL Hgb 8.8 L (12.0-15.0) g/dL Hct 27.1 L (37.2-46.3) % MCV 101.5 H (80.0-97.0) fL MCH 33.0 H (27.0-32.0) pg Plt Count 513 H (140-440) X 10*3/uL MPV 8.9 L (9.5-12.2) fL Potassium 3.4 L (3.5-5.5) mmol/L Anion Gap 9.10 L (10.00-18.00) mmol/L BUN 4.6 L (9.0-27.0) mg/dL Creatinine 0.3 L (0.6-1.5) mg/dL Calcium 7.9 L (8.7-10.3) mg/dL Total Bilirubin <0.15 L (0.30-1.20) mg/dL Total Protein 4.8 L (6.2-8.2) g/dL Albumin 2.5 L (3.8-4.9) g/dL Albumin/Globulin Ratio 1.09 L (1.60-3.17) g/dL Microbiology - Last 24 Hours (Table) 02/21/22 15:26 Blood Culture - Preliminary Blood No Growth after 24 hours 02/21/22 15:41 Blood Culture - Preliminary Blood No Growth after 24 hours
[2022-02-23] MEDS: DOCUSATE 100 MG CAP PO SCH (16:03)
[2022-02-24] MEDS: HYDROmorphone 0.5 MG/0.5 ML SYRINGE IVP PRN (04:20)
[2022-02-24] MEDS: SODIUM CHLORIDE 0.9% 1,000 ML IV SCH (04:27)
[2022-02-24 07:37] LABS: ALT 11 U/L (4-34); AST 18 U/L (14-36); African American GFR (CKD) >90 (>60 ml/min/1.73 sqM); Albumin 2.4 g/dL (3.5-5.0); Albumin/Globulin Ratio 0.9; Alkaline Phosphatase 84 U/L (38-126); Anion Gap 8 mmol/L; Blood Urea Nitrogen <2 mg/dL (7-17); Calcium 7.7 mg/dL (8.4-10.2); Carbon Dioxide 25 mmol/L (22-30); Chloride 106 mmol/L (98-107); Globulin 2.6 g/dL; Glucose 85 mg/dL (74-99); Non-African American GFR(CKD) >90 (>60 ml/min/1.73 sqM); Potassium 3.5 mmol/L (3.5-5.1); Sodium 139 mmol/L (137-145); Total Bilirubin 0.2 mg/dL (0.2-1.3)
[2022-02-24] MEDS ORDERED: HYDROcodone/APAP 5-325MG 1 EACH TAB PO PRN (07:55)
[2022-02-24 08:02] LABS: HCT 28.4 % (34.0-46.0); Hypochromasia Slight; MCH 32.2 pg (25.0-35.0); MCHC 32.3 g/dL (31.0-37.0); MCV 99.9 fL (80.0-100.0); Mean Platelet Volume 7.9; Platelet Count 533 k/uL (150-450); RBC 2.85 m/uL (3.80-5.40); RDW 12.5 % (11.5-15.5); WBC 4.2 k/uL (3.8-10.6)
[2022-02-24 08:06] LABS: HGB 9.2 gm/dL (11.4-16.0)
[2022-02-24] MEDS: ENOXAPARIN 40 MG/0.4 ML SYRINGE SQ SCH (08:14)
[2022-02-24] MEDS: PIPERACILLIN-TAZOBACTAM 3.375 GM in SODIUM CHLORIDE 0.9% 100 ML IVPB SCH (08:14)
[2022-02-24] MEDS: DOCUSATE 100 MG CAP PO SCH (08:14)
[2022-02-24] MEDS: NICOTINE 14MG/24HR PATCH TRANSDERM SCH ×2 (08:15→08:17)
[2022-02-24] MEDS: PANTOPRAZOLE 40 MG/10 ML VIAL IV SCH (08:16)
[2022-02-24 08:49] VITALS: BP 130/74; PULSE 80; RESP 18; TEMP 97.8
--- NOTE | 2022-02-24 10:08 | P.PN ---
Subjective Progress Note Date: 02/24/22 CHIEF COMPLAINT: Diverticulitis with abscess a microperforation HISTORY OF PRESENT ILLNESS: The patient denies any abdominal pain. She tolerated regular diet. She has had a bowel movement. She denies any nausea or vomiting. Denies any blood in her stools. Afebrile. WBC is 4.2 Hgb is 9.2 platelets 533 sodium is 139 potassium 3.5 creatinine 0.36 Patient seen and examined with Dr. castillo PHYSICAL EXAM: VITAL SIGNS: Reviewed. GENERAL: Well-developed in no acute distress. HEENT: No sclera icterus. Extraocular movements grossly intact. Moist buccal mucosa. Head is atraumatic, normocephalic. ABDOMEN: Soft. Nondistended. Nontender. NEUROLOGIC: Alert and oriented. Cranial nerves II through XII grossly intact. ASSESSMENT: 1. Acute sigmoid diverticulitis with abscess and microperforation 2. Hypokalemia improved PLAN: -Patient can be discharged from surgical standpoint -Recommend to be discharged on oral antibiotics -Patient will need colonoscopy outpatient Physician Document Examiner note has been reviewed by physician. Signing provider agrees with the documented findings, assessment, and plan of care. Objective - Vital Signs Vital signs: Vital Signs Temp 97.8 F 02/24/22 08:09 Pulse 80 02/24/22 08:09 Resp 18 02/24/22 08:09 BP 130/74 02/24/22 08:09 Pulse Ox 92 L 02/24/22 08:09 FiO2 Intake & Output 02/23/22 02/24/22 02/24/22 18:59 06:59 18:59 Intake Total 180 Balance 180 Intake: Oral 180 Other: Voiding Method Toilet # Voids 3 3 - Labs CBC & Chem 7: 02/24/22 05:56 02/24/22 05:56 Labs: Abnormal Lab Results - Last 24 Hours (Table) 02/24/22 02/24/22 Range/Units 05:56 05:56 RBC 2.85 L (3.80-5.40) m/uL Hgb 9.2 L D (11.4-16.0) gm/dL Hct 28.4 L (34.0-46.0) % Plt Count 533 H (150-450) k/uL BUN <2 L (7-17) mg/dL Creatinine 0.36 L (0.52-1.04) mg/dL Calcium 7.7 L (8.4-10.2) mg/dL Total Protein 5.0 L (6.3-8.2) g/dL Albumin 2.4 L (3.5-5.0) g/dL Microbiology - Last 24 Hours (Table) 02/23/22 20:18 Stool Culture - Preliminary Stool 02/21/22 15:26 Blood Culture - Preliminary Blood No Growth after 48 hours 02/21/22 15:41 Blood Culture - Preliminary Blood No Growth after 48 hours
[2022-02-24 13:21] VITALS: BMI 17.5
[2022-02-24 13:28] LABS: % Iron Saturation 12.81 (12.00-45.00)
--- NOTE | 2022-02-24 14:23 | P.DS ---
Providers Date of admission: 02/21/22 15:00 Expected date of discharge: 02/24/22 Attending physician: Quintin Sosa MD Consults: 02/21/22 15:00 Consult Physician Urgent Consulting Provider: Errol Velásquez Consult Reason/Comments: diverticulitis with abscess formation Do you want consulting provider notified?: Yes Primary care physician: Stated None Hospital Course: Discharge Diagnosis: Acute sigmoid diverticulitis with abscess and microperforation Acute anemia Thrombocytosis Nicotine dependence Hypokalemia Recent COVID URI Hospital Course: Patient is a 56-year-old female with history of diverticulosis, benign breast mass, and nicotine dependence who presented to the emergency department with a chief complaint of abdominal pain. In the ER she underwent an extensive evaluation. CBC unremarkable with the exception of thrombocytosis with platelet count of 634. BMP revealing mild hyponatremia with sodium of 134, hypochloremia with chloride of 95, and elevated alkaline phosphatase of 157. Troponin negative at less than 0.012. Urinalysis contaminated specimen, but showing no signs of infection. Covid PCR incidentally positive, however patient reports that she works at [employer] and was diagnosed with Covid infection [address] abdomen and pelvis with contrast revealing acute sigmoid diverticulitis with abscess formation. Patient started on IV antibiotics with Zosyn and admitted under our services with consultation to general surgery. Due to the location and small size of her abscess non-operative management was recommended. Patient continued to do well. Her diet was advanced. She was determined stable for discharge home. She was noted to have anemia during her hospital stay. Her iron studies, B12, and folic acid were pending at the time of discharge. She will follow up with Dr. Yang to establish a primary care physician. She'll follow up with Dr. Velásquez in 2 weeks. Patient seen and examined at bedside. Doing well. No additional abdominal pain. Still having some constipation. She will take MiraLAX at home. Tolerating her diet. Vital signs reviewed and stable. General: nontoxic, no distress, appears at stated age Derm: warm, dry Head: atraumatic, normocephalic, symmetric Eyes: EOMI, no lid lag, anicteric sclera Mouth: no lip lesion, mucus membranes moist Cardiovascular: S1S2 reg, no murmur, positive posterior tibial pulse bilateral, Lungs: CTA bilateral, no rhonchi, no rales , no accessory muscle use Abdominal: soft, nontender to palpation, no guarding, no appreciable organomegaly Ext: no gross muscle atrophy, no edema, no contractures Neuro: CN II-XI grossly intact, no focal neuro deficits Psych: Alert, oriented, appropriate affect A total of 37 minutes of time were spent preparing this complex discharge summary. Patient was discharged on 02/24/22. Patient Condition at Discharge: Stable Plan - Discharge Summary New Discharge Prescriptions: New HYDROcodone/APAP 5-325MG [[place] 5-325] 1 each PO Q6HR PRN #21 tab PRN Reason: Moderate Pain Amoxic-Pot Clav 875-125Mg [Augmentin 875-125] 1 tab PO BID 14 Days #28 tab Discharge Medication List Amoxic-Pot Clav 875-125Mg [Augmentin 875-125] 1 tab PO BID 14 Days #28 tab 02/24/22 [Rx] HYDROcodone/APAP 5-325MG [[place] 5-325] 1 each PO Q6HR PRN #21 tab 02/24/22 [Rx] Follow up Appointment(s)/Referral(s): William Yang MD [STAFF PHYSICIAN] - 1 Week None,Stated [Primary Care Provider] - 1-2 days Errol Velásquez MD [STAFF PHYSICIAN] - 03/03/22 2:30 pm Activity/Diet/Wound Care/Special Instructions: Activity: as tolerated Diet: low fiber diet Special Instructions: Take all medications as prescribed. Do not operate heavy machinery or combined opiates with other drugs or alcohol as this could lead to overdose. Thank you for trusting us with her care, we wish you well on your journey to better health. You have anemia and your results of your iron studies, B12, and Folate are pending at the time of discharge. Please sign up for a [facility] My Chart where you can watch for these results and discuss them with Dr. Yang. Discharge Disposition: HOME SELF-CARE
[2022-02-25] MEDS ORDERED: PANTOPRAZOLE 40 MG TABLET PO SCH (09:00)
== END 2022-02-24 15:24 | disposition home or self-care (01) | DRG 392 ==
LOC: EC 09:46 → 4SSUR 15:00
PROVIDERS: ADMIT Internal Medicine; ATTEND Internal Medicine
DX: K57.20 Diverticulitis of large intestine with perforation and abscess without bleeding (principal); E87.1 Hypo-osmolality and hyponatremia; E87.8 Other disorders of electrolyte and fluid balance, not elsewhere classified; E87.6 Hypokalemia; K52.9 Noninfective gastroenteritis and colitis, unspecified; D75.839 Thrombocytosis, unspecified; Z20.822 Contact with and (suspected) exposure to COVID-19; Z87.891 Personal history of nicotine dependence; Z86.16 Personal history of COVID-19; Z87.01 Personal history of pneumonia (recurrent)
CPT/HCPCS: 36415; 74177; 80053; 81001; 82150; 82607; 82728; 82747; 83540; 83550; 83690; 83735; 84484; 85025; 85027; 87040; 87045; 87046; 87635; 96361; 96374; 96375; 96376; 99285

== ENCOUNTER 2022-09-09 16:11 | Emergency (ER) | payer OTHER ==
[2022-09-09] MEDS ORDERED: DIPH,PERTUS(ACELL)TETVAC-LF 0.5 ML VIAL IM ONE (16:43)
[2022-09-09] MEDS ORDERED: BACITRACIN OINT 1 EACH PACKET TOPICAL ONE (16:44)
--- NOTE | 2022-09-09 16:46 | ED ---
General Adult HPI - General Chief complaint: Wound/Laceration Stated complaint: Rt leg injury Time Seen by Provider: 09/09/22 16:34 Source: patient, RN notes reviewed Mode of arrival: wheelchair Limitations: no limitations - History of Present Illness Initial comments: 57-year-old female presents to the emergency department with chief complaint of skin tear to the right leg. She states she was walking by a trailer and slid her leg against a metal portion that was sticking out. Patient is unsure of her last tetanus shot date. Denies any other injury. - Related Data Previous Rx's Medication Instructions Recorded Amoxic-Pot Clav 875-125Mg 1 tab PO BID 14 Days #28 tab 02/24/22 [Augmentin 875-125] HYDROcodone/APAP 5-325MG [[place] 1 each PO Q6HR PRN #21 tab 02/24/22 5-325] Allergies Allergy/AdvReac Type Severity Reaction Status Date / Time No Known Allergies Allergy Verified 09/09/22 16:26 Review of Systems ROS Statement: Those systems with pertinent positive or pertinent negative responses have been documented in the HPI. ROS Other: All systems not noted in ROS Statement are negative. Past Medical History Past Medical History: No Reported History Additional Past Medical History / Comment(s): hx diverticulitis, colonoscopy History of Any Multi-Drug Resistant Organisms: None Reported Past Surgical History: No Surgical Hx Reported Additional Past Surgical History / Comment(s): oral surgery, lt breast biopsy - Neg for CA Past Anesthesia/Blood Transfusion Reactions: No Reported Reaction Past Psychological History: No Psychological Hx Reported Smoking Status: Former smoker Past Alcohol Use History: Occasional Past Drug Use History: None Reported - Past Family History Father Family Medical History: Cancer Son(s) Family Medical History: Cancer Additional Family Medical History / Comment(s): Leukemia General Exam Limitations: no limitations General appearance: alert, in no apparent distress Head exam: Present: other (Bruising to right forehead from prior injury) Eye exam: Present: normal appearance, other (Bruising around the eye from a prior injury) ENT exam: Present: normal exam, mucous membranes moist Neck exam: Present: normal inspection. Absent: tenderness, meningismus, lymphadenopathy Respiratory exam: Present: normal lung sounds bilaterally. Absent: respiratory distress, wheezes, rales, rhonchi, stridor Cardiovascular Exam: Present: regular rate, normal rhythm, normal heart sounds. Absent: systolic murmur, diastolic murmur, rubs, gallop, clicks Extremities exam: Present: full ROM, normal capillary refill, other (Skin tear to the right lower leg about 3 cm) Back exam: Present: normal inspection Neurological exam: Present: alert, oriented X3 Psychiatric exam: Present: normal affect, normal mood Skin exam: Present: warm, dry, normal color, other (skin tear to right lower leg). Absent: rash Course Vital Signs 09/09/22 09/09/22 16:26 17:12 Temperature 97.7 F 97.8 F Pulse Rate 103 H 82 Respiratory 18 16 Rate Blood Pressure 161/85 146/71 O2 Sat by Pulse 99 99 Oximetry Medical Decision Making - Medical Decision Making Was pt. sent in by a medical professional or institution (, PA, OFFICE TECHNICIAN, urgent care, hospital, or jail...) When possible be specific @ -No Did you speak to anyone other than the patient for history (EMS, parent, family, police, friend...)? What history was obtained from this source @ -No Did you review nursing and triage notes (agree or disagree)? Why? @ -I reviewed and agree with nursing and triage notes Were old charts reviewed (outside hosp., previous admission, EMS record, old EKG, old radiological studies, urgent care reports/EKG's, jail records)? Report findings @ -No old charts were reviewed Differential Diagnosis (chest pain, altered mental status, abdominal pain women, abdominal pain men, vaginal bleeding, weakness, fever, dyspnea, syncope, headache, dizziness, GI bleed, back pain, seizure, CVA, palpatations, mental health, musculoskeletal)? @ -Differential Musculoskeletal Muscular strain, contusion, ligament sprain, fracture, arthritis, septic arthritis, bursitis, cellulitis, muscle spasm, nerve compression, DVT, arterial occlusion, herpes zoster, electrolyte abnormality, tumor.... This is not meant to be in all inclusive list EKG interpreted by me (3pts min.). @ -None X-rays interpreted by me (1pt min.). @ -None done CT interpreted by me (1pt min.). @ -None done U/S interpreted by me (1pt. min.). @ -None done What testing was considered but not performed or refused? (CT, X-rays, U/S, labs)? Why? @ -None What meds were considered but not given or refused? Why? @ -None Did you discuss the management of the patient with other professionals (professionals i.e. , PA, OFFICE TECHNICIAN, lab, RT, psych nurse, social science analyst, metal extrusion supervisor, teacher, special weapons and tactics officer, pillowcase turner)? Give summary @ -No Was smoking cessation discussed for >3mins.? @ -No Was critical care preformed (if so, how long)? @ -No Were there social determinants of health that impacted care today? How? (Homelessness, low income, unemployed, alcoholism, drug addiction, transportation, low edu. Level, literacy, decrease access to med. care, fpc, rehab)? @ -No Was there de-escalation of care discussed even if they declined (Discuss DNR or withdrawal of care, Hospice)? DNR status @ -No What co-morbidities impacted this encounter? (DM, HTN, Smoking, COPD, CAD, Cancer, CVA, ARF, Chemo, Hep., AIDS, mental health diagnosis, sleep apnea, morbid obesity)? @ -None Was patient admitted / discharged? Hospital course, mention meds given and route, prescriptions, significant lab abnormalities, going to OR and other pertinent info. @ -Discharged. Patient presents to the emergency department with chief complaint of right leg skin tear from a trailer. Patient states she is not up-to-date on tetanus vaccination. The wound was irrigated with 10cc of normal saline and evaluated for any foreign body. No foreign body was visualized. Bacitracin was applied and patient's wound was dressed. Adacell was administered. Patient discharged in stable condition. Case discussed with my attending, Dr. Moreno Undiagnosed new problem with uncertain prognosis? @ -No Drug Therapy requiring intensive monitoring for toxicity (Heparin, Nitro, Insulin, Cardizem)? @ -No Were any procedures done? @ -No Diagnosis/symptom? @ -skin tear Acute, or Chronic, or Acute on Chronic? @ -acute Uncomplicated (without systemic symptoms) or Complicated (systemic symptoms)? @ -uncomplicated Side effects of treatment? @ -No Exacerbation, Progression, or Severe Exacerbation? @ -No Poses a threat to life or bodily function? How? (Chest pain, [place], [place], pneumonia, PE, COPD, DKA, ARF, appy, cholecystitis, CVA, Diverticulitis, Homicidal, Suicidal, threat to staff... and all critical care pts) @ -No Disposition Clinical Impression: Skin tear of right lower leg without complication Disposition: HOME SELF-CARE Condition: Stable Instructions (If sedation given, give patient instructions): Acute Wound Care (ED) Additional Instructions: Please return to the Emergency Department if symptoms worsen or any other concerns. Is patient prescribed a controlled substance at d/c from ED?: No Referrals: None,Stated [Primary Care Provider] - 1-2 days Time of Disposition: 17:02
[2022-09-09 17:13] VITALS: BP 146/71; PULSE 82; RESP 16; TEMP 97.8
== END 2022-09-09 17:12 | disposition home or self-care (01) ==
LOC: EC 16:11
DX: S81.811A Laceration without foreign body, right lower leg, initial encounter (principal); Z87.891 Personal history of nicotine dependence; Z23 Encounter for immunization; W26.8XXA Contact with other sharp object(s), not elsewhere classified, initial encounter; Y93.01 Activity, walking, marching and hiking
CPT/HCPCS: 90471; 90715; 99282

== ENCOUNTER → 2023-04-03 | Outpatient (CLI) | payer MEDICAID ==
--- NOTE | 2023-04-03 09:58 | CT ---
EXAMINATION TYPE: CT abdomen pelvis wo con DATE OF EXAM: 04/03/2023 COMPARISON: 02/21/2022 INDICATION: diverticultis DLP: 235 mGycm, Automated exposure control for dose reduction was used. CONTRAST: 0 mL of Isovue 300. Study performed without Oral Contrast TECHNIQUE: Axial images were obtained from above the diaphragm to the pubic rami in the axial plane a t 5 mm thick sections. Reconstructed images are reviewed on the computer in the coronal plane. FINDINGS: Limited CT sections are obtained the lung bases. The lung bases are clear. CT ABDOMEN: Liver: There is a 1.4 cm cyst in the posterior right lobe liver. Liver otherwise appears unremarkable . Spleen: Normal Pancreas: Normal Adrenal glands: The adrenal glands are normal. Gallbladder: Normal Kidneys: No masses are evident. No hydronephrosis is present. No cysts are present. Aorta: Vascular calcification is within the aorta. Inferior vena cava: Normal. CT PELVIS: Diverticular changes of the sigmoid colon. The study is without oral contrast limiting bowel evaluati on. No dilated bowel are evident. No adjacent inflammatory changes to suggest acute diverticulitis. S ome colonic thickening may be present within the distalmost sigmoid colon near the rectosigmoid junct ion. Consider colonoscopy or lower GI to evaluate this region for underlying mass. Example image seri es 3 image 51. Appendix: Normal as visualized. Urinary bladder: Normal. Genitourinary structures: Uterus and adnexa appear normal. Osseous structures: No suspicious lytic or sclerotic lesions. Degenerative disc changes are within th e lumbar spine. Scoliosis is present. IMPRESSION: 1. Diverticulosis without acute diverticulitis. 2. Some prominence of the distal sigmoid colon. Underlying mass cannot be excluded on the noncontrast study. Consider colonoscopy or lower GI for additional evaluation.
[2023-04-03 10:44] LABS: Basophils # (A) 0.08 X 10*3/uL (0.00-0.10); Eosinophils # (A) 0.05 X 10*3/uL (0.04-0.35); Eosinophils % (A) 1.3 %; HCT 43.6 % (37.2-46.3); HGB 13.9 g/dL (12.0-15.0); Lymphocytes % (A) 45.2 %; MCH 33.3 pg (27.0-32.0); MCHC 31.9 g/dL (32.0-37.0); MCV 104.3 FL (80.0-97.0); Mean Platelet Volume 8.8 FL (9.5-12.2); Monocytes # (A) 0.42 X 10*3/uL (0.20-1.00); Monocytes % (A) 10.6 %; NRBC Per 100 WBC 0 X 10*3/uL (0.00-0.01); Neutrophils # (A) 1.62 X 10*3/uL (1.80-7.70); Neutrophils % (A) 40.6 %; Platelet Count 614 X 10*3/uL (140-440); RBC 4.18 X 10*6/uL (4.10-5.20); RDW 12.9 % (11.5-14.5); WBC 3.98 X 10*3/uL (4.50-10.00)
[2023-04-03 11:20] LABS: ALT 48 U/L (8-44); AST 213 U/L (13-35); Albumin 3.6 g/dL (3.8-4.9); Albumin/Globulin Ratio 1.06 Ratio (1.60-3.17); Alkaline Phosphatase 220 U/L (41-126); Blood Urea Nitrogen 4.4 mg/dL (9.0-27.0); Calcium 8.9 mg/dL (8.7-10.3); Carbon Dioxide 23.7 mmol/L (21.6-31.8); Chloride 102 mmol/L (96-109); Chol/HDL Ratio 2.91 Ratio; Globulin 3.4 g/dL (1.6-3.3); Glucose 90 mg/dL (70-110); Potassium 4.4 mmol/L (3.5-5.5); Sodium 141 mmol/L (135-145); T4, Free (Free Thyroxine) 1.17 ng/dL (0.80-1.80); Total Bilirubin <0.2 mg/dL (0.3-1.2)
== END | disposition home or self-care (01) ==
LOC: LABWHC1 07:23
PROVIDERS: ATTEND Student in an Organized Health Care Education/Training Program
DX: Z71.89 Other specified counseling (principal); K57.92 Diverticulitis of intestine, part unspecified, without perforation or abscess without bleeding
CPT/HCPCS: 36415; 74176; 80053; 80061; 82306; 83036; 83721; 84439; 84443; 85025

== ENCOUNTER → 2023-06-29 | Outpatient (CLI) | payer MEDICAID ==
--- NOTE | 2023-06-29 22:48 | US ---
EXAMINATION TYPE: US gallbladder DATE OF EXAM: 06/29/2023 COMPARISON: NONE CLINICAL INDICATION: Female, 57 years old with history of R10.11 RIGHT UPPER QUADRANT PAIN; RUQ pain TECHNIQUE: Multiple sonographic images of the right upper quadrant are obtained. FINDINGS: EXAM MEASUREMENTS: Liver Length: 12.9 cm Gallbladder Wall: .3 cm CBD: .5 cm Right Kidney: 9.2 x 4.1 x 3.7 cm Pancreas: Unremarkable appearance. Liver: Normal homogeneous appearance. There is a benign right liver lobe cyst measuring 1.3 x .7 x 1. 6 cm. Gallbladder: No stones or other abnormality seen. Evidence for sonographic Isaacs's sign: no CBD: wnl Right Kidney: No hydronephrosis or masses seen IMPRESSION: A benign 1.6 cm right liver lobe cyst. Otherwise, no gallstones or biliary duct dilatation or other s pecific abnormality seen.
== END | disposition home or self-care (01) ==
LOC: RADUSWWP 07:18
PROVIDERS: ATTEND Surgery Plastic and Reconstructive Surgery
DX: K76.89 Other specified diseases of liver (principal)
CPT/HCPCS: 76705

== ENCOUNTER → 2023-06-30 | Outpatient (CLI) | payer MEDICAID ==
[2023-06-30 15:53] LABS: Basophils # (A) 0.11 X 10*3/uL (0.00-0.10); Eosinophils # (A) 0.07 X 10*3/uL (0.04-0.35); Eosinophils % (A) 0.6 %; HCT 39.2 % (37.2-46.3); HGB 12.4 g/dL (12.0-15.0); Lymphocytes # (A) 2.21 X 10*3/uL (0.90-5.00); Lymphocytes % (A) 19.7 %; MCHC 31.6 g/dL (32.0-37.0); MCV 94.7 FL (80.0-97.0); Mean Platelet Volume 9.1 FL (9.5-12.2); Monocytes % (A) 4.5 %; NRBC Per 100 WBC 0 X 10*3/uL (0.00-0.01); Neutrophils # (A) 8.31 X 10*3/uL (1.80-7.70); Neutrophils % (A) 73.9 %; Platelet Count 668 X 10*3/uL (140-440); RBC 4.14 X 10*6/uL (4.10-5.20); RDW 12.7 % (11.5-14.5); WBC 11.23 X 10*3/uL (4.50-10.00)
[2023-06-30 16:49] LABS: ALT 18 U/L (8-44); AST 19 U/L (13-35); Albumin 4.2 g/dL (3.8-4.9); Albumin/Globulin Ratio 1.14 Ratio (1.60-3.17); Alkaline Phosphatase 115 U/L (41-126); Blood Urea Nitrogen 8.2 mg/dL (9.0-27.0); Carbon Dioxide 22.6 mmol/L (21.6-31.8); Chloride 105 mmol/L (96-109); Chol/HDL Ratio 3.94 Ratio; Globulin 3.7 g/dL (1.6-3.3); Glucose 92 mg/dL (70-110); LDL Cholesterol,Calculated 103.6 mg/dL (0.0-131.0); Sodium 143 mmol/L (135-145); Total Bilirubin <0.2 mg/dL (0.3-1.2); Total Protein 7.9 g/dL (6.2-8.2)
== END | disposition home or self-care (01) ==
LOC: LABWHC1 10:19
PROVIDERS: ATTEND Student in an Organized Health Care Education/Training Program
DX: E55.9 Vitamin D deficiency, unspecified (principal); E78.1 Pure hyperglyceridemia; D75.89 Other specified diseases of blood and blood-forming organs; R79.89 Other specified abnormal findings of blood chemistry
CPT/HCPCS: 36415; 80053; 80061; 82306; 82607; 82746; 85025

== ENCOUNTER 2023-07-19 10:09 | Day surgery (SDC) | payer MEDICAID ==
--- NOTE | 2023-07-19 08:29 | P.GSHP ---
History of Present Illness H&P Date: 07/19/23 CHIEF COMPLAINT: Colon screen HISTORY OF PRESENT ILLNESS: The patient is a 57-year-old female who presents for colon screen. Lower endoscopy was offered for further evaluation and management. PAST MEDICAL HISTORY: Please see list. PAST SURGICAL HISTORY: Please see list. MEDICATIONS: Please see list. ALLERGIES: Please see list. SOCIAL HISTORY: No illicit drug use FAMILY HISTORY: No reports of Crohn disease or ulcerative colitis. REVIEW OF ORGAN SYSTEMS: CONSTITUTIONAL: No reports of fevers or chills. PHYSICAL EXAM: VITAL SIGNS: Stable GENERAL: Well-developed pleasant in no acute distress. HEENT: No scleral icterus. Extraocular movements grossly intact. Moist buccal mucosa. NECK: Supple without lymphadenopathy. CHEST: Unlabored respirations. Equal bilateral excursions. CARDIOVASCULAR: Regular rate and rhythm. Distal 2+ pulses. ABDOMEN: Soft, nontender, nondistended. MUSCULOSKELETAL: No clubbing, cyanosis, or edema. ASSESSMENT: 1. Colon screen. PLAN: 1. Recommend proceeding with a lower endoscopy Past Medical History Past Medical History: No Reported History, Hyperlipidemia Additional Past Medical History / Comment(s): hx diverticulitis, colonoscopy History of Any Multi-Drug Resistant Organisms: None Reported Past Surgical History: Breast Surgery Additional Past Surgical History / Comment(s): oral surgery, lt breast biopsy - Neg for CA Past Anesthesia/Blood Transfusion Reactions: No Reported Reaction Smoking Status: Former smoker - Past Family History Father Family Medical History: Cancer Son(s) Family Medical History: Cancer Additional Family Medical History / Comment(s): Leukemia Medications and Allergies Allergies Allergy/AdvReac Type Severity Reaction Status Date / Time No Known Allergies Allergy Verified 07/17/23 10:43
[2023-07-19] MEDS: LACTATED RINGERS 1,000 ML IV SCH (10:25)
[2023-07-19] MEDS ORDERED: PROPOFOL 10 MG/ML 20 ML VIAL IV ONE (10:52)
[2023-07-19 11:01] VITALS: RESP 16; TEMP 97.4
--- NOTE | 2023-07-19 11:45 | P.PCN ---
Date of Procedure: 07/19/23 Description of Procedure: PREOPERATIVE DIAGNOSIS: Colonoscopy screening. POSTOPERATIVE DIAGNOSIS: Colonoscopy screening. External hemorrhoids. Sigmoid colon polyp OPERATION: Colonoscopy to the sigmoid colon. SURGEON: Otilia Villagomez MD. ANESTHESIA: MAC. INDICATIONS: The patient is a 57-year-old female who presents for first colonoscopy screening. Benefits and risks were described and informed consent was obtained. DESCRIPTION OF PROCEDURE: The patient had undergone GoLytely prep. She had been brought into the operating room and laid in the left lateral decubitus position. After adequate intravenous sedation, the rectum was examined with 2% lidocaine jelly. External hemorrhoids were encountered. The rectal tone was loose. No lesions were palpated in the rectal vault. An Olympus colonoscope was advanced along the rectum to a very tortuous sigmoid colon. Despite multiple maneuvers, the sigmoid colon had severe tortuosity preventing further advancement of scope. The scope was passed to 30 cm from the anal verge. Polyp was excised. As the patient posed high risk for perforation with persistence of the procedure, the procedure was discontinued. The colon was desufflated. The patient had tolerated the procedure well. Withdrawal time was over 6 minutes. FINDINGS: [place] preparation quality scale 2+ (1-5) Tortuous sigmoid colon with stricture preventing further advancement of the scope. External prolapsed hemorrhoids. Scope advanced to sigmoid colon at 30 cm. Sigmoid colon polyp removed via hot snare polypectomy, 8 mm Endoscopy due to sigmoid colon tortuosity Severe sigmoid diverticulosis RECOMMENDATIONS: Completion of colonoscopy evaluation with barium enema. Plan - Discharge Summary Discharge Rx Participant: No New Discharge Prescriptions: Continue RX: Ezetimibe [Zetia] 10 mg PO DAILY Discharge Medication List RX: Ezetimibe [Zetia] 10 mg PO DAILY 07/19/23 [History] Follow up Appointment(s)/Referral(s): Otilia Villagomez MD [STAFF PHYSICIAN] - 08/15/23 3:15 pm Patient Instructions/Handouts: Colorectal Polyps (GEN), Diverticulitis Diet (ED), Diverticulosis (DC) Activity/Diet/Wound Care/Special Instructions: Recommend barium enema Discharge Disposition: HOME SELF-CARE
[2023-07-19 12:14] VITALS: BP 116/64; PULSE 70
--- NOTE | 2023-07-19 13:25 | XR ---
EXAMINATION TYPE: XR abdomen 1V DATE OF EXAM: 07/19/2023 COMPARISON: NONE HISTORY: Postcolonoscopy TECHNIQUE: One view abdominal series FINDINGS: The osseous structures are intact. The bowel gas pattern is nonspecific. Lung bases are clear. Exte nsive air throughout the colon. This likely is secondary to recent colonoscopy. Scoliosis seen. Bilat eral hip arthropathy. Vascular calcifications supine image assessment for free air. IMPRESSION: 1. Nonspecific abdomen.
== END 2023-07-19 12:59 | disposition home or self-care (01) ==
LOC: ORWHC2ENDO 10:09
PROVIDERS: ATTEND Surgery Plastic and Reconstructive Surgery
DX: Z12.11 Encounter for screening for malignant neoplasm of colon (principal); K63.5 Polyp of colon; K64.4 Residual hemorrhoidal skin tags; K56.2 Volvulus; K57.30 Diverticulosis of large intestine without perforation or abscess without bleeding; E78.5 Hyperlipidemia, unspecified; Z98.890 Other specified postprocedural states; Z87.891 Personal history of nicotine dependence; Z79.899 Other long term (current) drug therapy
CPT/HCPCS: 88305; 74018; 45338; J2704

== ENCOUNTER → 2023-07-26 | Outpatient (CLI) | payer MEDICAID ==
--- NOTE | 2023-07-26 14:48 | FL ---
EXAMINATION TYPE: FL barium enema w air contrast DATE OF EXAM: 07/26/2023 COMPARISON: NONE HISTORY: None TECHNIQUE: A double contrast barium enema study is performed. A total of 5 minutes and 4 seconds of fluoroscopic time was utilized during procedure and 30 images obtained. Total dose area product (DA P) in uGy*m?, mGy*cm? (or similar): Not provided. FINDINGS: Toll [employer] Central Office view of the abdomen shows overall non-obstructive bowel gas pattern. Curvature of th e spine with severe degenerative change. Diffuse osteopenia. Vascular calcifications. Bilateral hip a rthropathy. There is extreme redundancy of the colon. There is a moderate fairly diffuse diverticulosis. Severe d iverticulosis of the sigmoid colon with narrowing and mid sigmoid colon. This should be correlated wi th recent colonoscopy Portions of the right colon and transverse colon are limited due to retained fluid and marked tortuos ity. There is no obvious sizable polypoid mass or filling defect. There is a superior compression katheryn ng the upper margin of the hepatic flexure. Possibly extrinsic although a mucosal lesion is. No defin ite annular constricting lesion. Assessment for small polyps markedly limited. A partial filling of t he appendix noted. Appendix was filled and appeared normal. The terminal ileum was refluxed and appears within normal l imits. IMPRESSION: 1. Limited exam due to extreme redundancy of the colon. There there is diffuse moderate diverticulosi s most marked involving the sigmoid colon. There is segmental circumferential narrowing of the sigmoi d colon which could be secondary to severe localized diverticulosis. Recommend this BE correlated wit h recent colonoscopy to exclude other etiologies. 2. Particular limitations regarding the right colon due to retained fluid and marked redundancy. Ther e is a superior impression upon the region of the hepatic flexure. Difficult to determine if this is related to mucosal area of irregularity or extrinsic compression. Given limitation of the exam and un successful colonoscopy, consider virtual colonoscopy or CT scan.
== END | disposition home or self-care (01) ==
LOC: RADFLMAIN 07:43
PROVIDERS: ATTEND Surgery Plastic and Reconstructive Surgery
DX: Q43.8 Other specified congenital malformations of intestine (principal); K56.2 Volvulus
CPT/HCPCS: 74280

== ENCOUNTER → 2023-08-18 | Outpatient (CLI) | payer MEDICAID | END | disposition home or self-care (01) | LOC: LABWHC1 07:38 | PROVIDERS: ATTEND Surgery Plastic and Reconstructive Surgery | DX: I11.9 Hypertensive heart disease without heart failure (principal); R94.31 Abnormal electrocardiogram [ECG] [EKG] | CPT/HCPCS: 36415; 93005 ==